=== PATIENT | female | born 1975 | race Hispanic/Latino ===

== ENCOUNTER → 2024-02-01 09:49 | Outpatient (REF) | payer OTHER, SELFPAY ==
[2024-02-01 13:21] LABS: HDL Cholesterol 39 mg/dl; LDL Cholesterol, Calculated 150 mg/dl; Total Cholesterol 239 mg/dl (50-199); Triglyceride 254 mg/dl (10-149); Very Low Density Lipoprotein 50 mg/dl (0-30)
[2024-02-01 13:32] LABS: Vitamin D, 25-OH*** 15.1 ng/mL (30-80)
[2024-02-01 14:06] LABS: Glycohemoglobin (HgbA1c) 6.3 % (4.0-5.6)
== END ==
LOC: CLINIC 09:49
PROVIDERS: ATTENDING PHYSICIAN Nurse Practitioner Adult Health
DX: R73.03 Prediabetes (principal); E78.5 Hyperlipidemia, unspecified; E55.9 Vitamin D deficiency, unspecified
CPT/HCPCS: 36415; 80061; 82306; 83036

== ENCOUNTER → 2024-08-06 09:27 | Outpatient (REF) | payer OTHER, SELFPAY ==
[2024-08-06 10:36] LABS: HDL Cholesterol 39 mg/dl; LDL Cholesterol, Calculated 168 mg/dl; Total Cholesterol 263 mg/dl (50-199); Triglyceride 282 mg/dl (10-149); Very Low Density Lipoprotein 56 mg/dl (0-30)
[2024-08-06 10:55] LABS: Vitamin D, 25-OH*** 25.7 ng/mL (30-80)
[2024-08-06 11:00] LABS: Glycohemoglobin (HgbA1c) 5.9 % (4.0-5.6)
== END ==
LOC: REG 09:27
PROVIDERS: ATTENDING PHYSICIAN Nurse Practitioner Adult Health
DX: E78.5 Hyperlipidemia, unspecified (principal); R73.03 Prediabetes; E55.9 Vitamin D deficiency, unspecified
CPT/HCPCS: 36415; 80061; 82306; 83036